=== PATIENT | male | born 1970 | race Caucasian/White ===

== ENCOUNTER 2018-08-13 06:35 | Emergency (ER) | payer SELFPAY ==
[~2018-08-13] VITALS: Wt 79.0 kg
[2018-08-13] MEDS ORDERED: KETOROLAC 15 MG INJ IV STA (06:46)
[2018-08-13] MEDS ORDERED: HYDROmorphONE 1 MG/ML SYG IV STA (06:46)
[2018-08-13] MEDS ORDERED: ONDANSETRON 4 MG INJ IV STA (06:46)
[2018-08-13] MEDS ORDERED: FAMO-96 PO (07:39)
--- NOTE | 2018-08-13 07:41 | ERD ---
ER Documentation Chief Complaint Chief Complaint right flank pain onset 0200 am HPI 48-year-old male presents the emergency department complaining of abdominal pain. Patient is a somewhat poor historian but states he is having the acute onset of an epigastric abdominal pain that radiates to his right upper quadrant and right flank. Pain started this morning and has been considered severe. It is associated with no nausea, vomiting, diarrhea, urinary symptoms. He has apparently had the same kind of pain previously but no previous diagnosis was made. Patient reports that he occasionally drinks alcohol but no significant alcohol intake prior to this episode of the pain. ROS All systems reviewed and are negative except as per history of present illness. Medications Home Meds Active Scripts Famotidine* (Pepcid*) 20 Mg Tablet, 20 MG PO BID for 4 Days, TAB Prov:KATHERYN LIANG 08/13/18 Allergies Allergies: Coded Allergies: No Known Allergy (Unverified , 08/13/18) PMhx/Soc Medical and Surgical Hx: pt denies Medical Hx, pt denies Surgical Hx History of Surgery: No Anesthesia Reaction: No Hx Neurological Disorder: No Hx Respiratory Disorders: No Hx Cardiac Disorders: No Hx Psychiatric Problems: No Hx Miscellaneous Medical Probl: No Hx Alcohol Use: Yes Hx Substance Use: No Hx Tobacco Use: No Smoking Status: Never smoker Physical Exam Vitals Vital Signs Date Temp Pulse Resp B/P (MAP) Pulse Ox O2 O2 Flow FiO2 Time Delivery Rate 08/13/18 98.0 66 18 133/82 99 06:36 (99) Physical Exam GENERAL: The patient is well developed and appropriate for usual state of health in no apparent distress, uncomfortable appearing HEENT: Pupils equal, round, and reactive to light. EOMI. There is no scleral icterus. NECK: C-spine is soft and supple, there is no meningismus. There is no cervical lymphadenopathy. LUNGS: Clear to auscultation bilaterally. There are no rales, wheezes or rhonchi. HEART: Regular rate and rhythm, no murmurs, clicks, rubs or gallops. ABDOMEN: Soft, non-tender, non-distended. There are bowel sounds in all four quadrants. No rebound or guarding. No CVA tenderness. No Naranjo sign. EXTREMITIES: There is no peripheral cyanosis or edema. No focal swelling or laura thema. NEURO: The patient moves all four extremities with 5/5 strength. Cranial nerves II - XII are intact. Normal gait. Alert and oriented SKIN: There is no apparent rash or petechiae. HEME/LYMPHATIC: There is no evidence of excessive bruising or lymphedema. PSYCHIATRIC: The patient does not appear anxious or depressed. Result Diagram: 08/13/18 0706 08/13/18 0706 Results 24 hrs Laboratory Tests Test 08/13/18 07:06 White Blood Count 8.9 10^3/ul Red Blood Count 4.94 10^6/ul Hemoglobin 15.2 g/dl Hematocrit 46.2 % Mean Corpuscular Volume 93.5 fl Mean Corpuscular Hemoglobin 30.8 pg Mean Corpuscular Hemoglobin Concent 32.9 g/dl Red Cell Distribution Width 12.4 % Platelet Count 246 10^3/UL Mean Platelet Volume 10.2 fl Immature Granulocytes % 0.600 % Neutrophils % 71.0 % Lymphocytes % 16.1 % Monocytes % 6.0 % Eosinophils % 5.3 % Basophils % 1.0 % Nucleated Red Blood Cells % 0.0 /100WBC Immature Granulocytes # 0.050 10^3/ul Neutrophils # 6.3 10^3/ul Lymphocytes # 1.4 10^3/ul Monocytes # 0.5 10^3/ul Eosinophils # 0.5 10^3/ul Basophils # 0.1 10^3/ul Nucleated Red Blood Cells # 0.0 10^3/ul Sodium Level 144 mmol/L Potassium Level 3.8 mmol/L Chloride Level 106 mmol/L Carbon Dioxide Level 25 mmol/L Anion Gap 13 Blood Urea Nitrogen 16 mg/dl Creatinine 0.97 mg/dl Est Glomerular Filtrat Rate mL/min > 60 mL/min Glucose Level 105 mg/dl Calcium Level 9.5 mg/dl Total Bilirubin 0.5 mg/dl Direct Bilirubin 0.00 mg/dl Indirect Bilirubin 0.5 mg/dl Aspartate Amino Transf (AST/SGOT) 32 IU/L Alanine Aminotransferase (ALT/SGPT) 33 IU/L Alkaline Phosphatase 106 IU/L Total Protein 8.2 g/dl Albumin 4.6 g/dl Globulin 3.60 g/dl Albumin/Globulin Ratio 1.27 Lipase 72 U/L Current Medications Medications Dose Sig/Adri Start Time Status Last (Trade) Ordered Route PRN Stop Time Admin Dose Reason Admin 1 mg ONCE STAT 08/13/18 DC 08/13/18 Hydromorphone IV 06:46 06:59 HCl 08/13/18 06:47 (Dilaudid) Ondansetron 4 mg ONCE STAT 08/13/18 DC 08/13/18 HCl (Zofran IV 06:46 06:58 Inj) 08/13/18 06:47 Ketorolac 15 mg ONCE STAT 08/13/18 DC 08/13/18 Tromethamine IV 06:46 06:58 (Toradol) 08/13/18 06:47 Procedures/MDM Patient was taken to a room, seen and evaluated. Comfort measures were initiated. Diagnostic tests were ordered and reviewed. 3 LEAD RHYTHM STRIP: Normal sinus rhythm without ectopy RADIOLOGY: Reviewed with the radiologist REEVALUATION: 0735: Diagnostic tests were appreciated. Patient was reevaluated and appeared much more comfortable. Serial examinations of the abdomen remained benign. MEDICAL DECISION MAKING: Patient presents with abdominal pain of uncertain etiology. Differential diagnosis considered includes appendicitis, diverticulitis, cholecystitis and other intra-abdominal medical and surgical concerns. I have reviewed the patients lab studies and imaging as well as multiple examinations of the abdomen. Initial diagnostic tests and ER course demonstrate no high risk pathology including no evidence of cholecystitis, appendicitis, pancreatitis. After supportive management, patient seems to be pain-free and appropriate for outpatient supportive care with precautionary instructions provided Departure Diagnosis: Primary Impression: Abdominal pain Condition: Stable Patient Instructions: Abdominal Pain Additional Instructions: Consulte a lambert mdico para el seguimiento segn lo discutido. Lleve ynes copia de los resultados de lambert prueba, si corresponde, a esta visita de seguimiento. Consulte a lambert mdico o regrese aqu si emily sntomas no mejoran abdullahi se esperaba. En cualquier momento, regrese al departamento de emergencias por cualquier cambio o empeoramiento en emily sntomas. KATHERYN LIANG Aug 13, 2018 07:41
[2018-08-13 07:58] VITALS: BP 101/55; PULSE 65; RESP 17
== END 2018-08-13 08:02 | disposition home or self-care (01) ==
LOC: E/R 06:35
DX: R10.13 Epigastric pain (principal)
CPT/HCPCS: 36415; 74176; 80053; 81001; 83690; 85025; 96374; 96375; 99285; J1170; J1885; J2405

== ENCOUNTER 2018-08-16 21:22 | Emergency (ER) | payer SELFPAY ==
[~2018-08-16] VITALS: Ht 177.8 cm; Wt 81.4 kg
[~2018-08-16 21:22] MED LIST: FAMO-96 PO
[2018-08-16 21:24] VITALS: Ht 177.8 cm; Wt 81.4 kg
[2018-08-16] MEDS ORDERED: KETOROLAC 30 MG INJ IV STA (21:36)
[2018-08-16] MEDS ORDERED: METOCLOPRAMIDE 10 MG INJ IV STA (21:36)
[2018-08-16] MEDS ORDERED: LIDOCAINE/MYLANTA 40 ML BTL PO STA (21:36)
[2018-08-16] MEDS ORDERED: LORAZEPAM 2 MG INJ IV ONE (22:00)
[2018-08-16] MEDS ORDERED: HYDR-4011 PO (23:43)
--- NOTE | 2018-08-16 23:45 | ERD ---
ER Documentation Chief Complaint Chief Complaint R upper AP 10/10 X 1 hr HPI This is a 48-year-old male who presents for evaluation of right upper abdominal pain. Patient was seen 3 days ago for the same pain, and has been described as intermittent and associated with food. He does endorse drinking alcohol, he has not a fever, he denies chest pain or shortness of breath. Fatty foods make the symptoms worse. He has not had a fever. ROS All systems reviewed and are negative except as per history of present illness. Medications Home Meds Active Scripts Hydrocodone/Acetaminophen ([place] 5-325 Tablet) 1 Each Tablet, 1 TAB PO Q6H PRN for PAIN, #7 TAB Prov:SHAHRIAR LOPEZ MD 08/16/18 Famotidine* (Pepcid*) 20 Mg Tablet, 20 MG PO BID for 4 Days, TAB Prov:AKTHERYN LIANG 08/13/18 Allergies Allergies: Coded Allergies: No Known Allergy (Unverified , 08/13/18) PMhx/Soc Medical and Surgical Hx: pt denies Medical Hx, pt denies Surgical Hx History of Surgery: No Anesthesia Reaction: No Hx Neurological Disorder: No Hx Respiratory Disorders: No Hx Cardiac Disorders: No Hx Psychiatric Problems: No Hx Miscellaneous Medical Probl: No Hx Alcohol Use: Yes (WEEKENDS) Hx Substance Use: Yes (COCAINE) Hx Tobacco Use: Yes Smoking Status: Former smoker Physical Exam Vitals Vital Signs Date Temp Pulse Resp B/P (MAP) Pulse Ox O2 O2 Flow FiO2 Time Delivery Rate 08/16/18 66 22 136/107 100 Room Air 21:45 (117) 08/16/18 97.6 73 45 171/106 99 21:24 (127) Physical Exam Const: No acute distress Head: Atraumatic Eyes: Normal Conjunctiva ENT: Normal External Ears, Nose and Mouth. Neck: Full range of motion. No meningismus. Resp: Clear to auscultation bilaterally Cardio: Regular rate and rhythm, no murmurs Abd: Soft, non tender, non distended. Normal bowel sounds Skin: No petechiae or rashes Back: No midline or flank tenderness Ext: No cyanosis, or edema Neur: Awake and alert Psych: Normal Mood and Affect Result Diagram: 08/16/18214408/16/182144 Results 24 hrs Laboratory Tests Test 08/16/18 21:42 08/16/18 21:45 Urine Color YELLOW Urine Clarity CLEAR Urine pH 5.0 Urine Specific [place] 1.029 Urine Ketones TRACE mg/dL Urine Nitrite NEGATIVE mg/dL Urine Bilirubin NEGATIVE mg/dL Urine Urobilinogen 2+ mg/dL Urine Leukocyte Esterase NEGATIVE Alexandra/ul Urine Microscopic RBC 2 /HPF Urine Microscopic WBC 2 /HPF Urine Bacteria FEW /HPF Urine Mucus FEW /HPF Urine Hemoglobin NEGATIVE mg/dL Urine Glucose NEGATIVE mg/dL Urine Total Protein 1+ mg/dl White Blood Count 12.9 10^3/ul Red Blood Count 4.55 10^6/ul Hemoglobin 14.2 g/dl Hematocrit 42.5 % Mean Corpuscular Volume 93.4 fl Mean Corpuscular Hemoglobin 31.2 pg Mean Corpuscular Hemoglobin Concent 33.4 g/dl Red Cell Distribution Width 11.9 % Platelet Count 226 10^3/UL Mean Platelet Volume 10.2 fl Immature Granulocytes % 0.500 % Neutrophils % 68.3 % Lymphocytes % 14.6 % Monocytes % 11.1 % Eosinophils % 5.0 % Basophils % 0.5 % Nucleated Red Blood Cells % 0.0 /100WBC Immature Granulocytes # 0.070 10^3/ul Neutrophils # 8.8 10^3/ul Lymphocytes # 1.9 10^3/ul Monocytes # 1.4 10^3/ul Eosinophils # 0.6 10^3/ul Basophils # 0.1 10^3/ul Nucleated Red Blood Cells # 0.0 10^3/ul Sodium Level 141 mmol/L Potassium Level 4.0 mmol/L Chloride Level 103 mmol/L Carbon Dioxide Level 28 mmol/L Anion Gap 10 Blood Urea Nitrogen 13 mg/dl Creatinine 1.12 mg/dl Est Glomerular Filtrat Rate mL/min > 60 mL/min Glucose Level 129 mg/dl Calcium Level 9.3 mg/dl Total Bilirubin 0.5 mg/dl Direct Bilirubin 0.00 mg/dl Indirect Bilirubin 0.5 mg/dl Aspartate Amino Transf (AST/SGOT) 22 IU/L Alanine Aminotransferase (ALT/SGPT) 21 IU/L Alkaline Phosphatase 92 IU/L Total Protein 8.1 g/dl Albumin 4.3 g/dl Globulin 3.80 g/dl Albumin/Globulin Ratio 1.13 Lipase 45 U/L Current Medications Medications Dose Sig/Adri Start Time Status Last (Trade) Ordered Route PRN Stop Time Admin Dose Reason Admin 10 mg ONCE STAT 08/16/18 DC 08/16/18 Metoclopramid IV 21:36 21:49 e HCl 08/16/18 21:39 (Reglan) 40 ml ONCE STAT 08/16/18 DC 08/16/18 Miscellaneous PO 21:36 21:53 Medication 08/16/18 21:39 (Gi Cocktail (2)) Ketorolac 30 mg ONCE STAT 08/16/18 DC 08/16/18 Tromethamine IV 21:36 21:49 (Toradol) 08/16/18 21:39 Lorazepam 1 mg ONCE ONCE 08/16/18 DC 08/16/18 (Ativan) IV 22:00 21:49 08/16/18 22:01 Procedures/MDM This is a 48-year-old male who presents for evaluation of abdominal pain. The patient presented in acute pain, with tenderness over his right upper quadrant, he had no peritoneal signs, and no rebound or guarding, his pain was controlled in the ED, I noted a leukocytosis on labs today, but they were otherwise relatively unchanged from previous. Thus an ultrasound was performed which showed gallbladder sludge, however no evidence of pericholecystic fluid, and no gallstones. This may be the etiology of his pain, and from the patient, and recommend follow-up with his primary care doctor, strict return precautions were given for worsening pain, p.o. intolerance, or any other worsening symptoms. At discharge she was in no acute distress. EKG: Rate/Rhythm: Normal Sinus Rhythm QRS, ST, T-waves: No changes consistent w/ acute ischemia Impression: No evidence of ischemia or arrhythmia Departure Diagnosis: Primary Impression: Biliary sludge Condition: Stable Patient Instructions: Abdominal Pain Additional Instructions: Call your primary care doctor TOMORROW for an appointment during the next 2-3 days.See the doctor sooner or return here if your condition worsens before your appointment time. SHAHRIAR LOPEZ MD Aug 16, 2018 23:44
[2018-08-16 23:52] VITALS: BP 107/69; PULSE 57; RESP 17
== END 2018-08-16 23:59 | disposition home or self-care (01) ==
LOC: E/R 21:22
DX: K83.9 Disease of biliary tract, unspecified (principal); Z87.891 Personal history of nicotine dependence
CPT/HCPCS: 76705; 80053; 81001; 83690; 85025; 93005; J1885; J2060; J2765; 96374; 96375

== ENCOUNTER 2018-08-17 00:34 | Inpatient (IN) | payer MEDICAID ==
[~2018-08-17] VITALS: Ht 165.1 cm; Wt 77.0 kg
[2018-08-17] VITALS (26 sets, daily range): BP systolic 90–148; BP diastolic 53–87; PULSE 60–89; RESP 10–18; Ht 165.1 cm; Wt 77.0 kg
[~2018-08-17 00:34] MED LIST changes: +HYDR-4011 PO
--- NOTE | 2018-08-17 00:38 | ERD ---
ER Documentation Chief Complaint Chief Complaint HPI 48-year-old male with right upper quadrant pain. See note documented earlier tonight, for full history. In brief, the patient had ultrasound findings showing possible acute cholecystitis, his pain had improved, but I discussed with him options for inpatient versus outpatient management, and he elected to return, given that he is still having pain. He has had no worsening of symptoms. ROS All systems reviewed and are negative except as per history of present illness. Medications Home Meds Active Scripts Hydrocodone/Acetaminophen ([place] 5-325 Tablet) 1 Each Tablet, 1 TAB PO Q6H PRN for PAIN, #7 TAB Prov:SHAHRIAR LOPEZ MD 08/16/18 Famotidine* (Pepcid*) 20 Mg Tablet, 20 MG PO BID for 4 Days, TAB Prov:KATHERYN LIANG 08/13/18 Allergies Allergies: Coded Allergies: No Known Allergy (Unverified , 08/13/18) PMhx/Soc History of Surgery: No Anesthesia Reaction: No Hx Neurological Disorder: No Hx Respiratory Disorders: No Hx Cardiac Disorders: No Hx Psychiatric Problems: No Hx Miscellaneous Medical Probl: No Hx Alcohol Use: Yes (WEEKENDS) Hx Substance Use: Yes (COCAINE) Hx Tobacco Use: Yes Physical Exam Vitals Vital Signs Date Temp Pulse Resp B/P (MAP) Pulse Ox O2 O2 Flow FiO2 Time Delivery Rate 08/17/18 68 18 111/82 98 Room Air 01:22 (92) 08/17/18 58 18 119/76 98 High Flow 00:45 (90) 08/17/18 97.5 79 18 116/56 100 00:36 (76) Physical Exam Const: Patient complaining of right upper abdominal pain, nontoxic-appearing, well-nourished Head: Atraumatic Eyes: Normal Conjunctiva ENT: Normal External Ears, Nose and Mouth. Neck: Full range of motion. No meningismus. Resp: Clear to auscultation bilaterally Cardio: Regular rate and rhythm, no murmurs Abd: Soft, right upper quadrant tenderness, no rebound or guarding, non distended. Normal bowel sounds Skin: No petechiae or rashes Back: No midline or flank tenderness Ext: No cyanosis, or edema Neur: Awake and alert Psych: Normal Mood and Affect Results 24 hrs Current Medications Medications Dose Sig/Adri Start Time Status Last (Trade) Ordered Route PRN Stop Time Admin Dose Reason Admin 1 mg ONCE STAT 08/17/18 DC 08/17/18 Hydromorphone IV 01:06 01:14 HCl 08/17/18 01:08 (Dilaudid) Ondansetron 4 mg ONCE STAT 08/17/18 DC 08/17/18 HCl (Zofran IV 01:06 01:14 Inj) 08/17/18 01:08 Procedures/MDM 48-year-old male presents for recurrent abdominal pain. Patient will be admitted for evaluation of possible acute cholecystitis, Dr. Su was consu lted for general surgery, Pt will be admitted to Dr. Abrams. Patient was given pain control in the ED, and is otherwise hemodynamically stable. Departure Diagnosis: Primary Impression: Abdominal pain Abdominal location: unspecified location Qualified Codes: R10.9 - Unspecified abdominal pain Condition: Stable SHAHRIAR LOPEZ MD Aug 17, 2018 00:38
[2018-08-17] MEDS ORDERED: HYDROmorphONE 2 MG/ML SYG IV STA ×2 (01:06→07:30)
[2018-08-17] MEDS ORDERED: ONDANSETRON 4 MG INJ IV STA (01:06)
[2018-08-17] MEDS ORDERED: DEXTROSE 5%-0.45% NACL 1,000 ML IV SCH (03:10)
[2018-08-17] MEDS ORDERED: ONDANSETRON 4 MG INJ IV PRN ×3 (03:30→11:30)
[2018-08-17] MEDS ORDERED: NACL 0.9% 3 ML SYG IV SCH (03:30)
[2018-08-17] MEDS ORDERED: morphine 2 MG INJ IV PRN ×2 (03:30→11:30)
[2018-08-17] MEDS: KETOROLAC 30 MG INJ IV PRN ×2 (04:26→18:10)
[2018-08-17] MEDS ORDERED: PIPER-TAZO 3.375 GM IV (PMX) 100 ML IVPB SCH (06:00)
--- NOTE | 2018-08-17 07:35 | HP ---
Date/Time of Note Date/Time of Note DATE: 08/17/18 TIME: 07:31 Assessment/Plan VTE Prophylaxis Risk score (from Ns)>0 risk: 1 SCD applied (from Ns): Yes SCD contraindicated: low risk/ambulating Pharmacological prophylaxis: NA/contraindicated Pharm contraindication: other (Awaiting surgical eval) Lines/Catheters IV [facility] Saline Lock Assessment/Plan Assessment/Plan 48-year-old male with right upper quadrant pain, secondary to acute cholec ystitis PLAN will keep n.p.o. with IV fluid IV antibiotic Pain management Awaiting surgical eval Result Diagram: 08/17/182 08/17/18 0422 Results 24hrs Laboratory Tests Test 08/17/18 04:22 White Blood Count 12.1 H Red Blood Count 4.54 L Hemoglobin 14.1 Hematocrit 43.2 Mean Corpuscular Volume 95.2 Mean Corpuscular Hemoglobin 31.1 Mean Corpuscular Hemoglobin Concent 32.6 Red Cell Distribution Width 11.9 Platelet Count 223 Mean Platelet Volume 10.5 H Immature Granulocytes % 0.700 H Neutrophils % 81.3 H Lymphocytes % 6.2 L Monocytes % 11.2 H Eosinophils % 0.2 Basophils % 0.4 Nucleated Red Blood Cells % 0.0 Immature Granulocytes # 0.080 H Neutrophils # 9.9 H Lymphocytes # 0.8 Monocytes # 1.4 H Eosinophils # 0.0 Basophils # 0.1 Nucleated Red Blood Cells # 0.0 Sodium Level 139 Potassium Level 4.1 Chloride Level 102 Carbon Dioxide Level 27 Anion Gap 10 Blood Urea Nitrogen 13 Creatinine 0.81 Est Glomerular Filtrat Rate mL/min > 60 Glucose Level 152 Calcium Level 9.1 Total Bilirubin 0.8 Direct Bilirubin 0.00 Indirect Bilirubin 0.8 Aspartate Amino Transf (AST/SGOT) 34 # Alanine Aminotransferase (ALT/SGPT) 19 Alkaline Phosphatase 92 Total Protein 7.7 Albumin 4.2 Globulin 3.50 H Albumin/Globulin Ratio 1.20 Lipase 24 HPI/ROS Admit Date/Time Admit Date/Time Aug 17, 2018 at 00:46 Hx of Present Illness This is a 48-year-old male with no significant past medical history who initial ly presented to the ER yesterday complaining of abdominal pain. Pain is mainly localized in the right upper quadrant area. Also reported associated nausea and vomiting. Patient was discharged from the ER yesterday with a diagnosis of biliary sludge. Later on, it was determined that patient most likely has acute cholecystitis and as such he was called back. Patient still complaining of abdominal pain, localized in the right upper quadrant area. Liver enzymes and lipase WNL PMH/Family/Social Past Medical History Medical History: other (See HPI) Medications Current Medications Dextrose/Sodium Chloride 1,000 ml @ 100 mls/hr Q10H IV Last administered on 08/17/18at 03:42; Admin Dose 100 MLS/HR; Start 08/17/18 at 03:10 IV Flush (NS 3 ml) 3 ml PER PROTOCOL IV ; Start 08/17/18 at 03:30 Ondansetron HCl (Zofran Inj) 4 mg Q6H PRN IV NAUSEA/VOMITING; Start 08/17/18 at 03:30 Morphine Sulfate (morphine) 2 mg Q4H PRN IV .SEVERE PAIN 7-10 Last administered on 08/17/18at 03:42; Admin Dose 2 MG; Start 08/17/18 at 03:30 Famotidine (Pepcid Iv) 20 mg Q12 IV ; Start 08/17/18 at 09:00 Piperacillin Sod/ Tazobactam Sod 100 ml @ 200 mls/hr Q6 IVPB Last administered on 08/17/18at 05:24; Admin Dose 200 MLS/HR; Start 08/17/18 at 06:00 Ketorolac Tromethamine (Toradol) 30 mg Q6H PRN IV PAIN LEVEL 1-3 Last admini stered on 08/17/18at 04:26; Admin Dose 30 MG; Start 08/17/18 at 04:30; Stop 08/20/18 at 04:29 Coded Allergies: No Known Allergy (Unverified , 08/13/18) Past Surgical History Past Surgical Hx: other (See HPI) Social History Alcohol Use: none Smoking Status: Former smoker Drug Use: none Exam/Review of Systems Vital Signs Vitals Vital Signs Date Temp Pulse Resp B/P (MAP) Pulse Ox O2 O2 Flow FiO2 Time Delivery Rate 08/17/18 97.8 82 18 118/85 97 02:20 (96) 08/17/18 Room Air 02:09 Intake and Output 08/16/18 08/16/18 08/17/18 1515:00 23:00 07:00 IntakeIntake Total 225 ml OutputOutput Total 150 ml BalanceBalance 75 ml Exam Constitutional: other (Patient in some distress due to abdominal pain) Head: normocephalic, atraumatic Eyes: EOMI, PERRL Respiratory: clear to auscultation, normal air movement Cardiovascular: regular rate and rhythm, nl pulses Gastrointestinal: other (Tenderness to palpation in the right upper quadrant area with some guarding. No rigidity) Extremities: normal pulses LINDSEY FUENTES MD Aug 17, 2018 07:34
--- NOTE | 2018-08-17 07:48 | CONS ---
Assessment/Plan Assessment/Plan Assessment/Plan (Daily) Acute cholecystitis Discussed treatment with IV antibiotics versus surgery. I discussed the possi bility IV antibiotics would not work he requires surgery anyway. Patient wishes to proceed now as he is in significant pain Discussed proceeding with a laparoscopic, possible open, cholecystectomy, p ossible pleasure with the patient. All benefits, risks, alternatives discussed in detail. All questions answered. The patient asked to proceed. Consultation Date/Type/Reason Admit Date/Time Aug 17, 2018 at 00:46 Date/Time of Note DATE: 08/17/18 TIME: 07:46 Hx of Present Illness The patient is a 48-year-old male who presents to the ER twice this week for right upper quadrant pain. He presented few days ago and was discharged home for unclear reasons. He returned once again due to persistent pain. Pain is worse with fatty foods. Patient had some chills as well this morning. He has had some nausea but no emesis and he denies changes in bowel habits. Patient has been having symptoms on and off for the past 2 years. He has never presented to the ER before. Past Medical History Medical History: no pertinent history, other Home Meds Active Scripts Hydrocodone/Acetaminophen ([place] 5-325 Tablet) 1 Each Tablet, 1 TAB PO Q6H PRN for PAIN, #7 TAB Prov:SHAHRIAR LOPEZ MD 08/16/18 Famotidine* (Pepcid*) 20 Mg Tablet, 20 MG PO BID for 4 Days, TAB Prov:KATHERYN LIANG 08/13/18 Medications Current Medications Dextrose/Sodium Chloride 1,000 ml @ 100 mls/hr Q10H IV Last administered on 08/17/18at 03:42; Admin Dose 100 MLS/HR; Start 08/17/18 at 03:10 IV Flush (NS 3 ml) 3 ml PER PROTOCOL IV ; Start 08/17/18 at 03:30 Ondansetron HCl (Zofran Inj) 4 mg Q6H PRN IV NAUSEA/VOMITING; Start 08/17/18 at 03:30 Famotidine (Pepcid Iv) 20 mg Q12 IV ; Start 08/17/18 at 09:00 Piperacillin Sod/ Tazobactam Sod 100 ml @ 200 mls/hr Q6 IVPB Last administered on 08/17/18at 05:24; Admin Dose 200 MLS/HR; Start 08/17/18 at 06:00 Ketorolac Tromethamine (Toradol) 30 mg Q6H PRN IV PAIN LEVEL 1-3 Last admini stered on 08/17/18at 04:26; Admin Dose 30 MG; Start 08/17/18 at 04:30; Stop 08/20/18 at 04:29 Morphine Sulfate (morphine) 4 mg Q4H PRN IV .SEVERE PAIN 7-10; Start 08/17/18 at 11:30 Allergies: Coded Allergies: No Known Allergy (Unverified , 08/13/18) Past Surgical History Past Surgical Hx: no surgical history, other Family History Significant Family History: no pertinent family hx Social History Alcohol Use: occasionally (He drinks between 2-10 beers on the weekend) Smoking Status: Former smoker Drug Use: none, cocaine Exam/Review of Systems Exam Vitals Vital Signs Date Temp Pulse Resp B/P (MAP) Pulse Ox O2 O2 Flow FiO2 Time Delivery Rate 08/17/18 98.4 66 18 148/87 98 07:41 (107) 08/17/18 Room Air 02:09 Intake and Output 08/16/18 08/16/18 08/17/18 1414:59 22:59 06:59 IntakeIntake Total 225 ml OutputOutput Total 150 ml BalanceBalance 75 ml Constitutional: alert, oriented, well developed Psych: no complaints, nl mood/affect Head: normocephalic Eyes: nl conjunctiva, EOMI, nl lids ENMT: nl external ears & nose Neck: supple Respiratory: clear to auscultation Cardiovascular: regular rate and rhythm, nl pulses Gastrointestinal: soft, tender (To epigastrium and right upper quadrant) Musculoskeletal: nl extremities to inspection Extremities: normal pulses Neurological: DENIAL RESOLUTION SPECIALIST II-XII intact, nl mental status, nl speech Skin: nl turgor Results Result Diagram: 08/17/18 0422 08/17/18 0422 Results 24hrs Laboratory Tests Test 08/17/18 04:22 White Blood Count 12.1 H Red Blood Count 4.54 L Hemoglobin 14.1 Hematocrit 43.2 Mean Corpuscular Volume 95.2 Mean Corpuscular Hemoglobin 31.1 Mean Corpuscular Hemoglobin Concent 32.6 Red Cell Distribution Width 11.9 Platelet Count 223 Mean Platelet Volume 10.5 H Immature Granulocytes % 0.700 H Neutrophils % 81.3 H Lymphocytes % 6.2 L Monocytes % 11.2 H Eosinophils % 0.2 Basophils % 0.4 Nucleated Red Blood Cells % 0.0 Immature Granulocytes # 0.080 H Neutrophils # 9.9 H Lymphocytes # 0.8 Monocytes # 1.4 H Eosinophils # 0.0 Basophils # 0.1 Nucleated Red Blood Cells # 0.0 Sodium Level 139 Potassium Level 4.1 Chloride Level 102 Carbon Dioxide Level 27 Anion Gap 10 Blood Urea Nitrogen 13 Creatinine 0.81 Est Glomerular Filtrat Rate mL/min > 60 Glucose Level 152 Calcium Level 9.1 Total Bilirubin 0.8 Direct Bilirubin 0.00 Indirect Bilirubin 0.8 Aspartate Amino Transf (AST/SGOT) 34 # Alanine Aminotransferase (ALT/SGPT) 19 Alkaline Phosphatase 92 Total Protein 7.7 Albumin 4.2 Globulin 3.50 H Albumin/Globulin Ratio 1.20 Lipase 24 Imaging Imaging Patient: IHSAN KOCH : 1970 Age: 48 Sex: M MR #: [id number] DOS: 08/16/182135 Ordering MD: SHAHRIAR LOPEZ MD Location: E/R Room/Bed: AMENDMENT: 08/17/2018 12:07:08 AM Sunday Hansen M.d These findings were discussed with ED physician Shahriar Palencia at 08/17/2018 12:07:00 AM. PROCEDURE: US Abdomen (Right upper quadrant). CLINICAL INDICATION: Abdominal Pain TECHNIQUE: Multiple real-time longitudinal and transverse images were acquired of the patient's right upper quadrant using a curved array transducer. COMPARISON: CT 08/13/2018. FINDINGS: The examination is suboptimal due to body habitus decreasing sound penetration. Liver: The liver measures 16.2 cm in length. Liver demonstrates normal echogenicity. No focal mass lesions are seen. No intrahepatic biliary dilatation is seen. Gallbladder: Gallbladder is markedly distended with sludge and possible small gallstones. Gallbladder wall is mildly thickened up to 3.4 mm. Water Proofer reports positive Naranjo's sign. Pancreas: Obscured by overlying bowel gas. Common bile duct: measures 2.5 mm in maximal dimension. Portal vein: The portal vein is patent with hepatopetal flow. Right Kidney: The right kidney measures 10.4 cm. There is no evidence of hydronephrosis. There are no kidney stones. IMPRESSION: Markedly distended gallbladder full of sludge. Small gallstones are likely present. Mild thickening of the gallbladder wall. Positive sonographic Naranjo's tenderness. The combination of findings is highly suspicious for acute cholecystitis. Unremarkable sonographic appearance of the liver. No renal calculi or hydronephrosis in the right kidney. Body habitus and decreased sound penetration, degrading image quality and assessment of underlying structures including the pancreas. RPTAT: EE Felicia Hansen Physician Associate Civil Engineer Date Time Electronically viewed and signed by Felicia Hansen Physician Associate Civil Engineer on 08/17/2018 00:08 rP/ Medications Medication Current Medications Dextrose/Sodium Chloride 1,000 ml @ 100 mls/hr Q10H IV Last administered on 08/17/18at 03:42; Admin Dose 100 MLS/HR; Start 08/17/18 at 03:10 IV Flush (NS 3 ml) 3 ml PER PROTOCOL IV ; Start 08/17/18 at 03:30 Ondansetron HCl (Zofran Inj) 4 mg Q6H PRN IV NAUSEA/VOMITING; Start 08/17/18 at 03:30 Famotidine (Pepcid Iv) 20 mg Q12 IV ; Start 08/17/18 at 09:00 Piperacillin Sod/ Tazobactam Sod 100 ml @ 200 mls/hr Q6 IVPB Last administered on 08/17/18at 05:24; Admin Dose 200 MLS/HR; Start 08/17/18 at 06:00 Ketorolac Tromethamine (Toradol) 30 mg Q6H PRN IV PAIN LEVEL 1-3 Last administered on 08/17/18at 04:26; Admin Dose 30 MG; Start 08/17/18 at 04:30; Stop 08/20/18 at 04:29 Morphine Sulfate (morphine) 4 mg Q4H PRN IV .SEVERE PAIN 7-10; Start 08/17/18 at 11:30 LATASHA JOHNSON MD Aug 17, 2018 07:48
[2018-08-17] MEDS: FAMOTIDINE 20 MG INJ IV SCH ×2 (09:00→20:35)
--- NOTE | 2018-08-17 09:39 | PREAC ---
Date/Time of Note Date/Time of Note DATE: 08/17/18 TIME: 09:37 Anesthesia Eval and Record Evaluation Time Pre-Procedure Interview DATE: 08/17/18 TIME: 09:37 Age 48 Sex male NPO: 8 hrs Preoperative diagnosis cholecystitis Planned procedure laparoscopic cholecystectomy Past Medical History Past Medical History: None Surgery & Anesthesia Issues No known issue Meds Anticoagulation: No Beta Magaly within 24 hr: No Reason Beta Magaly not given: Pt. not on B-Magaly Active Scripts Hydrocodone/Acetaminophen ([place] 5-325 Tablet) 1 Each Tablet, 1 TAB PO Q6H PRN for PAIN, #7 TAB Prov:SHAHRIAR LOPEZ MD 08/16/18 Famotidine* (Pepcid*) 20 Mg Tablet, 20 MG PO BID for 4 Days, TAB Prov:KATHERYN LIANG 08/13/18 Current Medications Dextrose/Sodium Chloride 1,000 ml @ 100 mls/hr Q10H IV Last administered on 08/17/18at 03:42; Admin Dose 100 MLS/HR; Start 08/17/18 at 03:10 IV Flush (NS 3 ml) 3 ml PER PROTOCOL IV ; Start 08/17/18 at 03:30 Ondansetron HCl (Zofran Inj) 4 mg Q6H PRN IV NAUSEA/VOMITING; Start 08/17/18 at 03:30 Famotidine (Pepcid Iv) 20 mg Q12 IV ; Start 08/17/18 at 09:00 Piperacillin Sod/ Tazobactam Sod 100 ml @ 200 mls/hr Q6 IVPB Last administered on 08/17/18at 05:24; Admin Dose 200 MLS/HR; Start 08/17/18 at 06:00 Ketorolac Tromethamine (Toradol) 30 mg Q6H PRN IV PAIN LEVEL 1-3 Last adminis tered on 08/17/18at 04:26; Admin Dose 30 MG; Start 08/17/18 at 04:30; Stop 08/20/18 at 04:29 Morphine Sulfate (morphine) 4 mg Q4H PRN IV .SEVERE PAIN 7-10; Start 08/17/18 at 11:30 Meds reviewed: Yes Allergies Coded Allergies: No Known Allergy (Unverified , 08/13/18) Allergies Reviewed: Yes Labs/Studies Labs Reviewed: Reviewed by anesthesiologist Result Diagram: 08/17/18 0422 08/17/18 0422 Laboratory Tests 08/17/18 04:22 test: N/A Pre-procedure Exam Last vitals Vital Signs Date Temp Pulse Resp B/P (MAP) Pulse Ox O2 O2 Flow FiO2 Time Delivery Rate 08/17/18 98.4 66 18 148/87 98 07:41 (107) 08/17/18 Room Air 02:09 Airway: Adequate mouth opening, Adequate thyromental dist Mallampati: Mallampati I Teeth: Normal Lung: Normal Heart: Normal ASA Physical Status ASA physical status: 2 Emergency: None Planned Anesthetic General/MAC: ETT Planned Pain Management Parenteral pain med Pre-operative Attestations Prior to commencing anesthesia and surgery, the patient was re-evaluated, there was verification of: *The patient's identity *The results of appropriate recent lab work and preoperative vital signs *The above evaluation not changing prior to induction *Anesthetic plan, risk benefits, alternative and complications discussed with patient/family; questions answered; patient/family understands, accepts and wishes to proceed. WALI GRANADOS Aug 17, 2018 09:38
--- NOTE | 2018-08-17 09:46 | OPR ---
Date/Time of Note Date/Time of Note DATE: 08/17/18 TIME: 09:45 Operative Report Preoperative Diagnosis Acute cholecystitis Postoperative Diagnosis Gangrenous cholecystitis Operation/Procedure Performed laparoscopic cholecystectomy Surgeon see signature line Mobile Home Park Manager none Anesthesia Type: general Anesthesiologist: WALI GRANADOS Estimated Blood Loss: 10 - 50 ml's Transfusion none Specimen Gangrenous gallbladder Grafts/Implants none Tubes/Drains 19 [place] round Evaristo drain in the right upper quadrant Complications none Indications The patient is a 48-year-old male with acute onset epigastric right upper quadrant pain. She was scheduled for surgery at an outside hospital was transferred here for insurance reasons. HIDA scan was positive for acute cholecystitis. We discussed proceeding with a laparoscopic, possible open, cholecystectomy, possible cholangiogram. All benefits, risks, alternatives were discussed in detail. All questions answered. The patient elects to proceed. Procedure Description The patient was brought to operative room and placed supine on the table. After preop antibiotics and SCDs, the patient was intubated. The abdomen was cleaned, prepped, draped usual sterile fashion. All incisions were demonstrated with half percent lidocaine with epinephrine. An 11 mm incision was made in the umbilicus. Using a 5 by laparoscope obtained trocar, the abdomen was entered under direct vision insufflated 50 mils of mercury CO2. The following trochars were then placed: a right lower quadrant 5 mm, right upper quadrant 5 mm and a subxiphoid 5 mm. The 5 mm umbilical trocar was exchanged 11 mm and direct vision. The gallbladder was thickened and edematous. It was consistent with acute cholecystitis. I aspirated approximately 100 cc of viscous dark bile to decompress the fundus. It was grasped at the fundus and retracted over the liver. Kareem's pouch was identified and retracted laterally. The peritoneum underneath Tolliver's was scored medially and laterally. I dissected out and skeletonized the cystic duct and artery. I dissected the gallbladder off the cystic plate of the liver. I now had my critical view of safety where I saw my duct and artery with no intervening structures. The artery was then clipped twice proximally once distally and divided. The cystic duct was too edematous and enlarged to fit 5 mm clips. I transected the cystic duct. The proximal end was tied off with a Prolene Endoloop. It was a good closure. The gallbladder was then removed and the gallbladder fossa with electrocautery. It was placed in Endo Catch bag removed and the 12 mm trocar site. I irrigated and aspirated out the right upper quadrant until effluent was clear. I visualized my gallbladder fossa. It was hemostatic. There was no evidence of bleeding or bile staining. Due to the acuteness of these gallbladder, I placed a 19 [place] round Evaristo in the gallbladder fossa. It exited through the right lower quadrant 5 mm trocar site was sutured the skin with a 2-0 nylon. The fascia of the 11 mm trocar site was closed with 0 Vicryl. The abdomen was now desufflated and all trochars were removed. Incisions were all closed with 4 Monocryl, Mastisol, and Steri-Strips. A 2 x 2 gauze and Tegaderm was placed over the umbilical incision and around the PER site.. Patient tolerated the procedure well. She was extubated in the OR and transferred to the recovery room in stable condition. LATASHA JOHNSON MD Aug 17, 2018 09:46
[2018-08-17] MEDS ORDERED: ROCURONIUM 50 MG INJ ONE (10:09)
[2018-08-17] MEDS ORDERED: FENTAnyl 50 MCG/ML VIAL ONE (10:09)
[2018-08-17] MEDS ORDERED: PROPOFOL 20 ML ONE (10:09)
[2018-08-17] MEDS ORDERED: LIDOCAINE 2% (SDV) 5 ML INJ ONE (10:09)
[2018-08-17] MEDS ORDERED: ONDANSETRON 4 MG INJ ONE (10:11)
[2018-08-17] MEDS ORDERED: DEXAMETHASONE 4 MG/ML 5 ML INJ ONE (10:11)
[2018-08-17] MEDS ORDERED: BUPIVACAINE 0.5%/EPI (SDV) 30 ML INJ ONE (10:29)
[2018-08-17] MEDS ORDERED: LIDOCAINE 1% (MPF) 30 ML INJ ONE (10:29)
--- NOTE | 2018-08-17 11:11 | SIPON ---
Date/Time of Note Date/Time of Note DATE: 08/17/18 TIME: 11:11 Operative Report Preoperative Diagnosis Acute cholecystitis Postoperative Diagnosis Acute gangrenous cholecystitis Operation/Procedure Performed Laparoscopic cholecystectomy Surgeon see signature line assistant chief engineer None Anesthesia: general Estimated blood loss: 10 - 50 ml's Transfusion Required none Specimen Gangrenous gallbladder Grafts/Implants none Complications none LATASHA JOHNSON MD Aug 17, 2018 11:11
[2018-08-17] MEDS ORDERED: SUGAMMADEX SODIUM 200 MG/2 ML VIAL IV ONE (11:12)
--- NOTE | 2018-08-17 11:13 | OPR ---
Date/Time of Note Date/Time of Note DATE: 08/17/18 TIME: 11:12 Operative Report Procedure Date: Aug 17, 2018 Preoperative Diagnosis Acute cholecystitis Postoperative Diagnosis Acute gangrenous cholecystitis Operation/Procedure Performed Laparoscopic cholecystectomy Surgeon see signature line Block Saw Operator None Anesthesia Type: general Anesthesiologist: WALI GRANADOS Estimated Blood Loss: 10 - 50 ml's Transfusion none Specimen Gangrenous gallbladder Grafts/Implants none Tubes/Drains 19 [place] round Evaristo drain in the gallbladder fossa Complications none Pt Condition Post Procedure: stable Disposition: PACU LATASHA JOHNSON MD Aug 17, 2018 11:13
--- NOTE | 2018-08-17 11:25 | PAC ---
Date/Time of Note Date/Time of Note DATE: 08/17/18 TIME: 11:24 Post-Anesthesia Notes Post-Anesthesia Note Last documented vital signs Vital Signs Date Temp Pulse Resp B/P (MAP) Pulse Ox O2 O2 Flow FiO2 Time Delivery Rate 08/17/18 98.4 66 18 148/87 98 1124 (107) 08/17/18 Room Air 02:09 Activity: WNL Respiratory function: WNL Cardiovascular function: WNL Mental status: Baseline Pain reasonably controlled: Yes Hydration appropriate: Yes Nausea/Vomiting absent: Yes WALI GRANADOS Aug 17, 2018 11:25
[2018-08-17] MEDS ORDERED: MIDAZOLAM 1 MG/ML 2 ML INJ IV PRN (11:30)
[2018-08-17] MEDS ORDERED: hydrALAzine 20 MG INJ IV PRN (11:30)
[2018-08-17] MEDS ORDERED: EPHEDrine SULFATE 50 MG/5 ML SYG IV PRN (11:30)
[2018-08-17] MEDS ORDERED: MEPERIDINE 25 MG INJ IV PRN (11:30)
[2018-08-17] MEDS ORDERED: DIPHENHYDRAMINE 50 MG INJ IV PRN (11:30)
[2018-08-17] MEDS ORDERED: METOCLOPRAMIDE 10 MG INJ IV PRN (11:30)
[2018-08-17] MEDS ORDERED: FENTAnyl 50 MCG/ML VIAL IV PRN ×3 (11:30)
[2018-08-17] MEDS ORDERED: LABETALOL HCL 20MG INJ IV PRN (11:30)
[2018-08-17] MEDS ORDERED: morphine 4 MG/ML VIAL IV PRN (11:30)
[2018-08-17] MEDS ORDERED: ACETAMINOPHEN 325 MG TAB PO PRN (11:30)
[2018-08-17] MEDS ORDERED: ALBUTEROL 0.083% (NEB) 2.5 MG/3 ML AMP HHN PRN (11:30)
[2018-08-17] MEDS ORDERED: HYDROmorphONE 1 MG/5 ML IV SYRINGE IV PRN ×3 (11:30)
[2018-08-17] MEDS ORDERED: KETOROLAC 30 MG INJ IV PRN (11:30)
[2018-08-17] MEDS: PIPER-TAZO 3.375 GM IV (PMX) 100 ML IVPB SCH ×2 (13:33→18:04)
[2018-08-17] MEDS: D5-NS + KCL 20 MEQ 1,000 ML IV SCH ×2 (13:33→20:36)
--- NOTE | 2018-08-17 18:07 | PN ---
Date/Time of Note Date/Time of Note DATE: 08/17/18 TIME: 18:05 Assessment/Plan VTE Prophylaxis Risk score (from N[place])>0 risk: 3 [place] [facility] [place] Pharmacological prophylaxis: NA/contraindicated Pharm contraindication: low risk/ambulating Lines/Catheters IV [facility] Type [facility] Peripheral IV Assessment/Plan Hospital Course 1. Acute gangrenous cholecystitis Patient status post lap scopic cholecystectomy postop day #0 Continue Zosyn, consider discontinuing tomorrow Possible DC home tomorrow Prophylaxis: Ambulation, SCDs DC planning: Anticipate DC home in 1-2 days Result Diagram: 08/17/18 0422 08/17/18 0422 Results 24hrs Laboratory Tests Test 08/17/18 04:22 White Blood Count 12.1 H Red Blood Count 4.54 L Hemoglobin 14.1 Hematocrit 43.2 Mean Corpuscular Volume 95.2 Mean Corpuscular Hemoglobin 31.1 Mean Corpuscular Hemoglobin Concent 32.6 Red Cell Distribution Width 11.9 Platelet Count 223 Mean Platelet Volume 10.5 H Immature Granulocytes % 0.700 H Neutrophils % 81.3 H Lymphocytes % 6.2 L Monocytes % 11.2 H Eosinophils % 0.2 Basophils % 0.4 Nucleated Red Blood Cells % 0.0 Immature Granulocytes # 0.080 H Neutrophils # 9.9 H Lymphocytes # 0.8 Monocytes # 1.4 H Eosinophils # 0.0 Basophils # 0.1 Nucleated Red Blood Cells # 0.0 Sodium Level 139 Potassium Level 4.1 Chloride Level 102 Carbon Dioxide Level 27 Anion Gap 10 Blood Urea Nitrogen 13 Creatinine 0.81 Est Glomerular Filtrat Rate mL/min > 60 Glucose Level 152 Calcium Level 9.1 Total Bilirubin 0.8 Direct Bilirubin 0.00 Indirect Bilirubin 0.8 Aspartate Amino Transf (AST/SGOT) 34 # Alanine Aminotransferase (ALT/SGPT) 19 Alkaline Phosphatase 92 Total Protein 7.7 Albumin 4.2 Globulin 3.50 H Albumin/Globulin Ratio 1.20 Lipase 24 Subjective 24 Hr Interval Summary Constitutional: no complaints Exam/Review of Systems Exam Vitals Vital Signs Date Temp Pulse Resp B/P (MAP) Pulse Ox O2 O2 Flow FiO2 Time Delivery Rate 08/17/18 98.5 69 16 126/65 95 Room Air 15:30 (85) Intake and Output 08/16/18 08/16/18 08/17/18 1515:00 23:00 07:00 IntakeIntake Total 225 ml OutputOutput Total 150 ml BalanceBalance 75 ml Constitutional: alert, oriented Respiratory: clear to auscultation Cardiovascular: regular rate and rhythm Gastrointestinal: soft; No distended Musculoskeletal: nl extremities to inspection Results Results 24hrs Laboratory Tests Test 08/17/18 04:22 White Blood Count 12.1 H Red Blood Count 4.54 L Hemoglobin 14.1 Hematocrit 43.2 Mean Corpuscular Volume 95.2 Mean Corpuscular Hemoglobin 31.1 Mean Corpuscular Hemoglobin Concent 32.6 Red Cell Distribution Width 11.9 Platelet Count 223 Mean Platelet Volume 10.5 H Immature Granulocytes % 0.700 H Neutrophils % 81.3 H Lymphocytes % 6.2 L Monocytes % 11.2 H Eosinophils % 0.2 Basophils % 0.4 Nucleated Red Blood Cells % 0.0 Immature Granulocytes # 0.080 H Neutrophils # 9.9 H Lymphocytes # 0.8 Monocytes # 1.4 H Eosinophils # 0.0 Basophils # 0.1 Nucleated Red Blood Cells # 0.0 Sodium Level 139 Potassium Level 4.1 Chloride Level 102 Carbon Dioxide Level 27 Anion Gap 10 Blood Urea Nitrogen 13 Creatinine 0.81 Est Glomerular Filtrat Rate mL/min > 60 Glucose Level 152 Calcium Level 9.1 Total Bilirubin 0.8 Direct Bilirubin 0.00 Indirect Bilirubin 0.8 Aspartate Amino Transf (AST/SGOT) 34 # Alanine Aminotransferase (ALT/SGPT) 19 Alkaline Phosphatase 92 Total Protein 7.7 Albumin 4.2 Globulin 3.50 H Albumin/Globulin Ratio 1.20 Lipase 24 Medications Medication Current Medications Famotidine (Pepcid Iv) 20 mg Q12 IV ; Start 08/17/18 at 09:00 Ketorolac Tromethamine (Toradol) 30 mg Q6H PRN IV PAIN LEVEL 1-3 Last administered on 08/17/18at 04:26; Admin Dose 30 MG; Start 08/17/18 at 04:30; Stop 08/20/18 at 04:29 Morphine Sulfate (morphine) 4 mg Q4H PRN IV .SEVERE PAIN 7-10; Start 08/17/18 at 11:30 Piperacillin Sod/ Tazobactam Sod 100 ml @ 200 mls/hr Q6 IVPB Last administered on 08/17/18at 18:04; Admin Dose 200 MLS/HR; Start 08/17/18 at 12:00 Ondansetron HCl (Zofran Inj) 4 mg Q6H PRN IV NAUSEA AND/OR VOMITING; Start 08/17/18 at 11:30 Morphine Sulfate (morphine) 2 mg Q2H PRN IV BREAKTHROUGH PAIN; Start 08/17/18 at 11:30 Acetaminophen (Tylenol Tab) 650 mg Q6H PRN PO MILD PAIN(1-3)OR ELEVATED TEMP; Start 08/17/18 at 11:30 Acetaminophen/ Hydrocodone Bitart ([place] (5/325)) 1 tab Q6H PRN PO PAIN LEVEL 6-10; Start 08/17/18 at 11:30 Potassium Chloride/Dextrose/ Sod Cl 1,000 ml @ 100 mls/hr Q10H IV Last administered on 08/17/18at 13:33; Admin Dose 100 MLS/HR; Start 08/17/18 at 11:15 Enoxaparin Sodium (Lovenox) 40 mg DAILY@07 SC ; Start 08/18/18 at 07:00 ANTHONY LONGORIA Aug 17, 2018 18:07
[2018-08-18 00:01] VITALS: BP 113/68; PULSE 70; RESP 18
[2018-08-18] MEDS: PIPER-TAZO 3.375 GM IV (PMX) 100 ML IVPB SCH ×4 (00:14→17:46)
[2018-08-18] MEDS: D5-NS + KCL 20 MEQ 1,000 ML IV SCH ×2 (00:17→12:22)
[2018-08-18] MEDS: ENOXAPARIN 40 MG/0.4 ML SYG SC SCH (06:16)
[2018-08-18] MEDS: KETOROLAC 30 MG INJ IV PRN ×2 (06:18→21:02)
[2018-08-18 07:18] VITALS: BP 116/66; PULSE 70; RESP 18
[2018-08-18] MEDS: FAMOTIDINE 20 MG INJ IV SCH ×2 (09:35→21:01)
[2018-08-18] MEDS: HYDROCODONE/APAP (5/325) TAB PO PRN ×2 (09:35→17:46)
--- NOTE | 2018-08-18 12:02 | PN ---
Date/Time of Note Date/Time of Note DATE: 08/18/18 TIME: 12:01 Assessment/Plan VTE Prophylaxis Risk score (from Ns)>0 risk: 3 SCD applied (from Ns): Yes Pharmacological prophylaxis: LMWH Lines/Catheters IV Catheter Type (from [facility]): Peripheral IV Assessment/Plan Hospital Course SUBJECTIVE: Abdominal pain well controlled. Started passing gas. OBJECTIVE: Physical Exam General: Adequately build 48 year-old male lying in bed in no apparent distress. HEENT: Normocephalic, atraumatic. Eyes: Anicteric sclerae, conjunctivae clear. ENT: Nasal septum midline, oral mucosa moist. Neck supple, no JVD noticed. Respiratory: Bilaterally clear breath sounds. No use of accessory muscles of res piration. No adventitious breath sounds. Cardiovascular: S1, S2 heard. No murmurs or gallops. Abdomen: Soft and nondistended. Dressings over laparoscopic incision sites. Drain in place. Genitourinary: Deferred. Extremities: No cyanosis, no clubbing, no edema. Peripheral pulses palpable. Neurologic: Cranial nerves II through XII grossly intact. The patient is awake, alert, and oriented. Skin: Normal skin turgor. No skin rashes. Labs & Vitals per chart ASSESSMENT & PLAN 48-year-old male with past medical history of cholelithiasis, who came to the emergency room with chief complaint of right upper quadrant pain. The patient was admitted to inpatient setting for further treatment and evaluation. 1. Acute gangrenous cholecystitis. -Status post laparoscopic cholecystectomy with placement of a drain on 08/17/2018. -Continue antimicrobials. -Encourage ambulation and use of incentive spirometry. 2. Fluids, electrolytes, and nutrition. -Regular consistency diet. 3. DVT prophylaxis -Subcutaneous Lovenox. 4. Plan. -Continue antimicrobials. -Encourage frequent ambulation and use of incentive spirometry. -Await surgical clearance before discharge. The patient was seen in collaboration with Dr. Cade. Result Diagram: 08/18/18 0434 08/18/18 0756 Results 24hrs Laboratory Tests Test 08/18/18 04:34 08/18/18 07:56 White Blood Count 12.0 H Red Blood Count 4.11 L Hemoglobin 12.9 L Hematocrit 38.7 L Mean Corpuscular Volume 94.2 Mean Corpuscular Hemoglobin 31.4 Mean Corpuscular Hemoglobin Concent 33.3 Red Cell Distribution Width 12.0 Platelet Count 220 Mean Platelet Volume 10.8 H Immature Granulocytes % 0.700 H Neutrophils % 82.7 H Lymphocytes % 6.9 L Monocytes % 9.6 Eosinophils % 0.0 Basophils % 0.1 Nucleated Red Blood Cells % 0.0 Immature Granulocytes # 0.080 H Neutrophils # 9.9 H Lymphocytes # 0.8 Monocytes # 1.2 H Eosinophils # 0.0 Basophils # 0.0 Nucleated Red Blood Cells # 0.0 Sodium Level 139 140 Potassium Level 4.8 4.6 Chloride Level 109 109 Carbon Dioxide Level 23 23 Anion Gap 7 8 Blood Urea Nitrogen 16 19 Creatinine 0.77 0.85 Est Glomerular Filtrat Rate mL/min > 60 > 60 Glucose Level 132 127 Calcium Level 8.7 8.7 Total Bilirubin 0.6 Direct Bilirubin 0.00 Indirect Bilirubin 0.6 Aspartate Amino Transf (AST/SGOT) 26 Alanine Aminotransferase (ALT/SGPT) 35 Alkaline Phosphatase 63 Total Protein 6.4 # Albumin 3.2 #L Globulin 3.20 Albumin/Globulin Ratio 1.00 Exam/Review of Systems Exam Vitals Vital Signs Date Temp Pulse Resp B/P (MAP) Pulse Ox O2 O2 Flow FiO2 Time Delivery Rate 08/18/18 98.5 70 18 116/66 96 07:18 (83) 08/17/18 Room Air 21:19 Intake and Output 08/17/18 08/17/18 08/18/18 1515:00 23:00 07:00 IntakeIntake Total 250 ml 600 ml 1600 ml OutputOutput Total 45 ml 920 ml 595 ml BalanceBalance 205 ml -320 ml 1005 ml Results Results 24hrs Laboratory Tests Test 08/18/18 04:34 08/18/18 07:56 White Blood Count 12.0 H Red Blood Count 4.11 L Hemoglobin 12.9 L Hematocrit 38.7 L Mean Corpuscular Volume 94.2 Mean Corpuscular Hemoglobin 31.4 Mean Corpuscular Hemoglobin Concent 33.3 Red Cell Distribution Width 12.0 Platelet Count 220 Mean Platelet Volume 10.8 H Immature Granulocytes % 0.700 H Neutrophils % 82.7 H Lymphocytes % 6.9 L Monocytes % 9.6 Eosinophils % 0.0 Basophils % 0.1 Nucleated Red Blood Cells % 0.0 Immature Granulocytes # 0.080 H Neutrophils # 9.9 H Lymphocytes # 0.8 Monocytes # 1.2 H Eosinophils # 0.0 Basophils # 0.0 Nucleated Red Blood Cells # 0.0 Sodium Level 139 140 Potassium Level 4.8 4.6 Chloride Level 109 109 Carbon Dioxide Level 23 23 Anion Gap 7 8 Blood Urea Nitrogen 16 19 Creatinine 0.77 0.85 Est Glomerular Filtrat Rate mL/min > 60 > 60 Glucose Level 132 127 Calcium Level 8.7 8.7 Total Bilirubin 0.6 Direct Bilirubin 0.00 Indirect Bilirubin 0.6 Aspartate Amino Transf (AST/SGOT) 26 Alanine Aminotransferase (ALT/SGPT) 35 Alkaline Phosphatase 63 Total Protein 6.4 # Albumin 3.2 #L Globulin 3.20 Albumin/Globulin Ratio 1.00 Medications Medication Current Medications Famotidine (Pepcid Iv) 20 mg Q12 IV Last administered on 08/18/18at 09:35; Admin Dose 20 MG; Start 08/17/18 at 09:00 Ketorolac Tromethamine (Toradol) 30 mg Q6H PRN IV PAIN LEVEL 1-3 Last administered on 08/18/18at 06:18; Admin Dose 30 MG; Start 08/17/18 at 04:30; Stop 08/20/18 at 04:29 Morphine Sulfate (morphine) 4 mg Q4H PRN IV .SEVERE PAIN 7-10; Start 08/17/18 at 11:30 Piperacillin Sod/ Tazobactam Sod 100 ml @ 200 mls/hr Q6 IVPB Last administered on 08/18/18at 06:13; Admin Dose 200 MLS/HR; Start 08/17/18 at 12:00 Ondansetron HCl (Zofran Inj) 4 mg Q6H PRN IV NAUSEA AND/OR VOMITING; Start 08/17/18 at 11:30 Morphine Sulfate (morphine) 2 mg Q2H PRN IV BREAKTHROUGH PAIN Last administered on 08/18/18at 00:12; Admin Dose 2 MG; Start 08/17/18 at 11:30 Acetaminophen (Tylenol Tab) 650 mg Q6H PRN PO MILD PAIN(1-3)OR ELEVATED TEMP; Start 08/17/18 at 11:30 Acetaminophen/ Hydrocodone Bitart ([place] (5/325)) 1 tab Q6H PRN PO PAIN LEVEL 6-10 Last administered on 08/18/18at 09:35; Admin Dose 1 TAB; Start 08/17/18 at 11:30 Potassium Chloride/Dextrose/ Sod Cl 1,000 ml @ 100 mls/hr Q10H IV Last administered on 08/18/18at 00:17; Admin Dose 100 MLS/HR; Start 08/17/18 at 11:15 Enoxaparin Sodium (Lovenox) 40 mg DAILY@07 SC Last administered on 08/18/18at 06:16; Admin Dose 40 MG; Start 08/18/18 at 07:00 JIHAN MARINELLI NP Aug 18, 2018 12:02
[2018-08-18 14:28] VITALS: BP 103/64; PULSE 62; RESP 18
--- NOTE | 2018-08-18 17:44 | PN ---
Date/Time of Note Date/Time of Note DATE: 08/18/18 TIME: 17:44 Assessment/Plan Lines/Catheters IV Catheter Type (from Nrsg): Peripheral IV Assessment/Plan Assessment/Plan Postop day 1 status post lap inocencio for gangrenous cholecystitis LFTs within normal limits Okay to discharge from surgical perspective tomorrow Subjective 24 Hr Interval Summary Constitutional: no complaints, improved Feeding: advancing diet Pain Control: mild Exam/Review of Systems Vital Signs Vitals Vital Signs Date Temp Pulse Resp B/P (MAP) Pulse Ox O2 O2 Flow FiO2 Time Delivery Rate 08/18/18 98.3 62 18 103/64 96 14:28 (77) 08/17/18 Room Air 21:19 Intake and Output 08/17/18 08/17/18 08/18/18 1515:00 23:00 07:00 IntakeIntake Total 250 ml 600 ml 1600 ml OutputOutput Total 45 ml 920 ml 595 ml BalanceBalance 205 ml -320 ml 1005 ml Exam Constitutional: alert, oriented, well developed Respiratory: clear to auscultation Cardiovascular: regular rate and rhythm Gastrointestinal: soft, other (Mildly distended) Additional Comments PER with serosanguineous drainage. DC'd. Results Result Diagram: 08/18/18 0434 08/18/18 0756 LATASHA JOHNSON MD Aug 18, 2018 17:44
[2018-08-18 19:56] VITALS: BP 113/71; PULSE 62; RESP 18
[2018-08-19 02:03] VITALS: BP 123/66; PULSE 64; RESP 18
[2018-08-19] MEDS: PIPER-TAZO 3.375 GM IV (PMX) 100 ML IVPB SCH ×4 (06:10→18:00)
[2018-08-19] MEDS: ENOXAPARIN 40 MG/0.4 ML SYG SC SCH (06:13)
[2018-08-19 07:29] VITALS: BP 128/79; PULSE 78; RESP 20
[2018-08-19] MEDS: FAMOTIDINE 20 MG INJ IV SCH (08:38)
[2018-08-19] MEDS: HYDROCODONE/APAP (5/325) TAB PO PRN ×2 (08:49→18:30)
[2018-08-19] MEDS ORDERED: OXYC-279 PO (08:52)
--- NOTE | 2018-08-19 08:55 | PDOCDIS ---
Discharge Instructions CONDITION [id number] Patient Condition: [id number] Stable HOME CARE INSTRUCTIONS: [id number] Diet Instructions: [id number] Regular ACTIVITY: [id number] Activity Restrictions: [id number] Slowly Increase Activity Rest between Activity Avoid heavy lifting Do not operate Machinery Do not operate Power Tool Avoid Heavy Housework [id number] Bathing Restrictions: [id number] Shower FOLLOW UP/APPOINTMENTS Follow-up Plan Davonte Su MD Specialty: General Surgery Office Address [address] [place] [address] Office OTHER ORDERS: Other Orders: 1. Regular diet as tolerated. 2. Keep incisions clean and dry. May shower. Avoid tub baths and swimming for 2 weeks. Use mild soap and pat dry the incisions. 3. Take medications as needed for pain. 4. Call the surgeon or go to the nearest ER if you have severe abdominal pain despite pain medications. 5. Call the surgeon or go to the nearest ER if you notice any bleeding or secretions coming out of the incision sites. Also call the surgeon if you notice any blood in stool, if you have persistent fevers, or any other unusual signs or symptoms. 6. Follow-up with the surgeon Dr. Su in 7 days for incision check. 7. Avoid heavy lifting [more than 10-15 pounds] for 4 weeks. JIHAN MARINELLI NP Aug 19, 2018 08:55
[2018-08-19] MEDS ORDERED: Work Note (09:05)
--- NOTE | 2018-08-19 11:04 | DS ---
Date/Time of Note Date/Time of Note DATE: 08/19/18 TIME: 11:03 Discharge Summary Admission/Discharge Info Admit Date/Time Aug 17, 2018 at 00:46 Discharge Date/Time Discharge Diagnosis 1. Acute gangrenous cholecystitis. Status post laparoscopic cholecystectomy with placement of a drain on 08/17/2018. Patient Condition: Stable Consults 1. Davonte Su MD, General Surgery. Procedures Date/Time of Note Date/Time of Note DATE: 08/17/18 TIME: 09:45 Operative Report Operative Report Preoperative Diagnosis Acute cholecystitis Postoperative Diagnosis Gangrenous cholecystitis Operation/Procedure Performed Laparoscopic cholecystectomy Hx of Present Illness This is a 48-year-old male with past medical history of cholelithiasis, who came to the emergency room with chief complaint of right upper quadrant pain. The patient was admitted to inpatient setting for further treatment and evaluation. Hospital Course A general surgery consult was obtained. The patient was kept n.p.o. The patient was started on antimicrobials. The patient's HIDA scan was positive for acute cholecystitis. The patient was taken to the OR on 08/17/2018 and the patient underwent laparoscopic cholecystectomy. The patient's intraoperative findings showed gangrenous gallbladder. Therefore, a 19 [place] Evaristo drain was put in intraoperatively. Postoperatively, the patient was started on a clear liquid diet and the patient's diet was advanced as tolerated to a regular consistency diet. The patient was advised on frequent ambulation and frequent use of incentive spirometry. The patient was continued on antimicrobials until discharge. The patient's drain was removed by the surgeon on 08/18/2018. The surgeon cleared the patient for discharge on 08/19/2018. The patient had a stable hospital course. Discharge Instructions 1. Regular diet as tolerated. 2. Keep incisions clean and dry. May shower. Avoid tub baths and swimming for 2 weeks. Use mild soap and pat dry the incisions. 3. Take medications as needed for pain. 4. Call the surgeon or go to the nearest ER if you have severe abdominal pain despite pain medications. 5. Call the surgeon or go to the nearest ER if you notice any bleeding or secretions coming out of the incision sites. Also call the surgeon if you notice any blood in stool, if you have persistent fevers, or any other unusual signs or symptoms. 6. Follow-up with the surgeon Dr. Su in 7 days for incision check. 7. Avoid heavy lifting [more than 10-15 pounds] for 4 weeks. The patient verbalized understanding of his discharge instructions. At this time I would like to thank Dr. Su for seeing the patient, doing the necessary procedures, and providing clinical recommendations. The patient was seen in collaboration with Dr. Cade. Home Meds Active Scripts [Work Note] No Conflict Check This is to certify that this patient was admitted to [facility] from 08/17/2018 to 08/19/2018. He may return back to work on 08/25/2018 with restriction of no heavy lifting (more than 15 pounds) until September 16, 2018 Prov:JIHAN MARINELLI NP 08/19/18 Oxycodone HCl/Acetaminophen (Percocet 5-325 mg Tablet) 1 Each Tablet, 1 EACH PO Q6H PRN for PAIN, #20 TAB Prov:JIHAN MARINELLI NP 08/19/18 Discontinued Scripts Hydrocodone/Acetaminophen ([place] 5-325 Tablet) 1 Each Tablet, 1 TAB PO Q6H PRN for PAIN, #7 TAB Prov:SHAHRIAR LOPEZ MD 08/16/18 Famotidine* (Pepcid*) 20 Mg Tablet, 20 MG PO BID for 4 Days, TAB Prov:KATHERYN LIANG 08/13/18 Follow-up Plan Davonte Su MD Specialty: General Surgery Office Address [address] [place] [address] [place] [id number] Office Primary Care Provider Care Physician No Primary Time spent on discharge: > 30 minutes Pending Labs Laboratory Tests Test 08/19/18 04:12 White Blood Count 9.0 10^3/ul (4.8-10.8) Red Blood Count 3.75 10^6/ul (4.70-6.10) Hemoglobin 11.6 g/dl (14.0-18.0) Hematocrit 35.7 % (42.0-52.0) Mean Corpuscular Volume 95.2 fl (82.0-101.0) Mean Corpuscular Hemoglobin 30.9 pg (29.0-33.0) Mean Corpuscular Hemoglobin Concent 32.5 g/dl (32.0-37.0) Red Cell Distribution Width 12.5 % (11.5-14.5) Platelet Count 219 10^3/UL (140-415) Mean Platelet Volume 10.8 fl (7.4-10.4) Immature Granulocytes % 0.600 % (0.001-0.429) Neutrophils % 63.9 % (39.0-77.0) Lymphocytes % 24.6 % (15.0-51.0) Monocytes % 9.4 % (0.0-11.0) Eosinophils % 1.2 % (0.0-7.0) Basophils % 0.3 % (0.0-2.0) Nucleated Red Blood Cells % 0.0 /100WBC (0.0-0.0) Immature Granulocytes # 0.050 10^3/ul (0.0-0.031) Neutrophils # 5.8 10^3/ul (1.6-7.5) Lymphocytes # 2.2 10^3/ul (0.8-2.9) Monocytes # 0.9 10^3/ul (0.3-0.9) Eosinophils # 0.1 10^3/ul (0.0-0.5) Basophils # 0.0 10^3/ul (0.0-0.1) Nucleated Red Blood Cells # 0.0 10^3/ul (0.0-0.0) Sodium Level 140 mmol/L (135-144) Potassium Level 4.2 mmol/L (3.5-5.1) Chloride Level 108 mmol/L (97-110) Carbon Dioxide Level 24 mmol/L (21-31) Anion Gap 8 (5-13) Blood Urea Nitrogen 18 mg/dl (7-20) Creatinine 0.90 mg/dl (0.61-1.24) Est Glomerular Filtrat Rate mL/min > 60 mL/min (>60) Glucose Level 98 mg/dl (70-220) Calcium Level 8.5 mg/dl (8.4-10.2) Phosphorus Level 3.7 mg/dl (2.5-4.9) Magnesium Level 2.2 mg/dl (1.7-2.5) Total Bilirubin 0.3 mg/dl (0.2-1.3) Direct Bilirubin 0.00 mg/dl (0.00-0.20) Indirect Bilirubin 0.3 mg/dl (0-1.1) Aspartate Amino Transf (AST/SGOT) 35 IU/L (15-46) Alanine Aminotransferase (ALT/SGPT) 38 IU/L (13-69) Alkaline Phosphatase 63 IU/L (42-121) Total Protein 5.9 g/dl (6.1-8.1) Albumin 3.0 g/dl (3.3-4.9) Globulin 2.90 g/dl (1.3-3.2) Albumin/Globulin Ratio 1.03 JIHAN MARINELLI NP Aug 19, 2018 11:04
[2018-08-19] MEDS: KETOROLAC 30 MG INJ IV PRN (12:58)
[2018-08-19] MEDS: D5-NS + KCL 20 MEQ 1,000 ML IV SCH ×2 (13:15)
[2018-08-19 15:06] VITALS: BP 113/63; PULSE 53; RESP 18
== END 2018-08-19 19:30 | disposition home or self-care (01) | DRG 419 ==
LOC: E/R 00:34 → MS1 00:46
PROVIDERS: ADMIT Internal Medicine; ATTEND Internal Medicine
PROC: 0FT44ZZ Resection of Gallbladder, Percutaneous Endoscopic Approach (ICD-10-PCS; principal; 2018-08-17 10:00)
DX: K80.00 Calculus of gallbladder with acute cholecystitis without obstruction (principal); K82.A1 Gangrene of gallbladder in cholecystitis; F14.90 Cocaine use, unspecified, uncomplicated; Z72.89 Other problems related to lifestyle; Z87.891 Personal history of nicotine dependence
CPT/HCPCS: 80048; 80053; 83690; 83735; 84100; 85025; 88304; J1100; J1170; J1650; J1885; J2270; J2405; J2543; J3010; J3480; J7042